=== PATIENT | male | born 1960 | race Caucasian/White ===

== ENCOUNTER 2017-03-13 19:58 | Emergency (ER) | payer BC, OTHER ==
[2017-03-13 20:05] VITALS: BP 129/79
[2017-03-13] MEDS ORDERED: DIPH/PERTUSS(ACELL)/TETANUS VAC/PF 0.5 ML SYR (>=10YO) IM ONE (20:16)
[2017-03-13] MEDS ORDERED: LIDOCAINE 4%/TETRACAINE 0.5%/EPI 0.18% 5 ML TOPICAL SOLN TOP ONE (20:16)
[2017-03-13] MEDS ORDERED: LIDOCAINE 1% INJ-PF (10 MG/ML) 30 ML SDV INJ ONE ×2 (20:22→20:50)
--- NOTE | 2017-03-13 20:23 | ER Document Report ---
ED Medical Screen (RME) - General Chief Complaint: Foreign Body Stated Complaint: HOOK IN LEFT THUMB Time Seen by Provider: 03/13/17 20:15 TRAVEL OUTSIDE OF THE [place] IN LAST 30 DAYS: No - HPI Patient complains to provider of: fish hook in thumb - Related Data Allergies/Adverse Reactions: No Known Allergies Allergy (Unverified 03/13/17 20:02) Past Medical History - Social History Chew tobacco use (# tins/day): No Frequency of alcohol use: None Drug Abuse: None - Past Medical History Cardiac Medical History: Reports: Hx Hypertension Renal/ Medical History: Denies: Hx Peritoneal Dialysis - Immunizations Hx Diphtheria, Pertussis, Tetanus Vaccination: No Review of Systems - Review of Systems Constitutional: Other - fish hook in thumb Physical Exam - Vital signs Vitals: Temp Pulse Resp BP Pulse Ox 98.1 F 71 22 H 129/79 H 96 03/13/17 20:02 03/13/17 20:02 03/13/17 20:02 03/13/17 20:02 03/13/17 20:02 - Respiratory Respiratory status: No respiratory distress Chest status: Nontender Breath sounds: Normal Chest palpation: Normal Course - Vital Signs Vital signs: Temp Pulse Resp BP Pulse Ox 98.1 F 71 22 H 129/79 H 96 03/13/17 20:02 03/13/17 20:02 03/13/17 20:02 03/13/17 20:02 03/13/17 20:02
[2017-03-13] MEDS ORDERED: BUPIVACAINE HCL 0.5 % INJ/PF 30 ML SDV INJ ONE (20:51)
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
[2017-03-13] MEDS ORDERED: DOXYCYCLINE HYCLATE 100 MG TABLET PO ONE (21:45)
[2017-03-13] MEDS ORDERED: HYDROCODONE/ACETAMINOPHEN 5-325 MG 6 TAB/DSPK PO PRN (21:45)
== END 2017-03-13 22:17 | disposition home or self-care (01) ==
LOC: ER 19:58
DX: S61.042A Puncture wound with foreign body of left thumb without damage to nail, initial encounter (principal); W45.8XXA Other foreign body or object entering through skin, initial encounter; Y93.14 Activity, water aerobics and water exercise; Y92.814 Boat as the place of occurrence of the external cause; I10 Essential (primary) hypertension
CPT/HCPCS: 99283; 90471; 90715; 10120; J3490